=== PATIENT | female | born 1945 | race Caucasian/White ===

== ENCOUNTER → 2016-10-21 | Outpatient (CLI) | payer BC ==
[~2016-10-21] MED LIST: ASPIRIN81 MG PO; COUMADIN3 M1 PO; COUMADIN4 M1 PO; FERROUS SULFAT325 M1 PO; HYDROCODONE BIT1 T11 PO; LEVEMIR100 U/ML SC; LIPITOR10 MG PO; Lovenox60 MG/0.6 SC; MAXIPIME2 GM IV; MAXZIDE 25 MG-31 TAB PO; MIRALAX17 GM/PACK PO; NOVOLOG 70/30 M10 ML SC; PRAVACHOL20 MG PO; TOPROL XL50 MG PO; VANCOCIN1000 MG/25 IV
== END | disposition home or self-care (01) ==
LOC: LAB 15:01
DX: H66.90 Otitis media, unspecified, unspecified ear (principal)